=== PATIENT | female | born 1985 | race Caucasian/White ===

== ENCOUNTER 2024-01-20 11:30 | Emergency (ER) | payer BC, SELFPAY ==
[2024-01-20 11:30] VITALS: BMI 21.4
--- NOTE | 2024-01-20 11:33 | ED.SKININJ ---
HPI-Injury
<Ashlie Lewis PA-C - Last Filed: 01/20/24 17:21>
General
Chief Complaint: Bite
Time Seen by Provider: 01/20/24 12:17
<Dez Garcia MD - Last Filed: 01/21/24 12:38>
General
Source: patient
Exam Limitations: none
History of Present Illness-Injury
Initial Injury comments:
Patient stung by a bee like insect on the right neck. Followed by general itching and hives mostly to the upper extremities. No airway issues. No history of same. Took 50 of Benadryl at home. Moderate
ED Provider Triage
<Ashlie Lewis PA-C - Last Filed: 01/20/24 17:21>
-
Patient seen by provider in Triage?: Seen in Triage
Attestation: A medical screening examination has been initiated by a qualified medical provider. Based on the assessment performed at this time, it has been determined that an emergent medical condition may exist and the patient has been informed
that further medical evaluation and possible additional diagnostic testing may be needed.
HPI: 38yoF here with a rash. Bitten by an unknown insect about an hour ago. Developed generalized rash/itching shortly afterwards. Took 2 Benadryl without relief. No hx of allergic reactions. No dysphagia, SOB, n/v/d.
GENERAL: Alert , in no apparent distress
EYE: No visual abnormalities.
NECK: Trachea midline
ENT: No visible abnormalities.
LUNGS: No acute respiratory distress
NEUROLOGICAL: Alert and oriented
SKIN: Skin intact. No visible changes.
MUSCULOSKELETAL: Moving extremities normally
PSYCH: Normal and appropriate interaction.
This is a medical evaluation conducted in person to initiate diagnostic evaluation and provide initial therapeutics. Please see further documentation by the treating clinician.
No evidence of respiratory/GI involvement or anaphylaxis. Patient able to be placed in a hallway bed immediately after triage. IV Decadron and Benadryl ordered.
Past History
<Ashlie Lewis PA-C - Last Filed: 01/20/24 17:21>
Past History
ED Past Medical History: None; Negative IDDM
ED Past Surgical History:
Social History
Tobacco: Non-smoker
Alcohol: None
Drug: None
Personal:
Living: with family
Employment: Employed
Family History
Family History: Other (Noncontributory)
Review of Systems
<Dez Garcia MD - Last Filed: 01/21/24 12:38>
Review of Systems
All Other Systems: Not applicable
Constitutional: Denies fever
Respiratory: Reports no symptoms
Phy Exam
<Dez Garcia MD - Last Filed: 01/21/24 12:38>
Physical Exam
Physical Exam:
GENERAL: Alert and oriented in no apparent distress
EYE: Orbits normal.
NECK: Supple, n. No swelling.
ENT: Pharynx without erythema. Speech normal. No drooling or stridor
CARDIAC: Regular rate and rhythm without any obvious murmurs.
LUNGS: Clear breath sounds,normal
ABDOMEN: Soft, without focal tenderness or distention
NEUROLOGICAL: Alert and oriented , grossly non-focal
SKIN: Warm and dry, fading hives mostly to the arms. Bite jodi to the right neck with surrounding erythema. Mild erythematous hue to the back and abdomen
MUSCULOSKELETAL: No edema,no deformity.Good color
PSYCH: Normal and appropriate interaction.
Course
<Ashlie Lewis PA-C - Last Filed: 01/20/24 17:21>
Orders/Labs/Results
Orders:
Orders
01/20/24 11:40
0.9% Sodium Chloride 1000 ml [Nss] 1,000 ml IV BOLUS
Dexamethasone Sod Phosphate [Decadron] 10 mg IV NOW STA
Diphenhydramine [Benadryl] 25 mg IV NOW STA
01/20/24 12:23
Famotidine [Pepcid] 20 mg IV NOW STA
Vital Signs
Initial and Last Documented VS:
Initial Vital Signs
Temp Pulse Resp BP Pulse Ox
97.9 F 109 18 125/67 98
01/20/24 11:34 01/20/24 11:34 01/20/24 11:34 01/20/24 11:34 01/20/24 11:34
Last Documented Vital Signs
Temp Pulse Resp BP Pulse Ox
97.9 F 88 16 121/79 100
01/20/24 11:34 01/20/24 12:00 01/20/24 12:00 01/20/24 12:00 01/20/24 12:00
<Dez Garcia MD - Last Filed: 01/21/24 12:38>
Orders/Labs/Results
Orders:
Orders
01/20/24 11:40
0.9% Sodium Chloride 1000 ml [Nss] 1,000 ml IV BOLUS
Dexamethasone Sod Phosphate [Decadron] 10 mg IV NOW STA
Diphenhydramine [Benadryl] 25 mg IV NOW STA
01/20/24 12:23
Famotidine [Pepcid] 20 mg IV NOW STA
Vital Signs
Initial and Last Documented VS:
Initial Vital Signs
Temp Pulse Resp BP Pulse Ox
97.9 F 109 18 125/67 98
01/20/24 11:34 01/20/24 11:34 01/20/24 11:34 01/20/24 11:34 01/20/24 11:34
Last Documented Vital Signs
Temp Pulse Resp BP Pulse Ox
97.9 F 88 16 121/79 100
01/20/24 11:34 01/20/24 12:00 01/20/24 12:00 01/20/24 12:00 01/20/24 12:00
<Dez Garcia MD - Last Filed: 01/21/24 12:38>
MDM/Problems Addressed
Differential Diagnosis Includes:
Consistent with a wasp hornet or bee sting with secondary allergic reaction. Not anaphylactic. Clinically stable. Improving at this time. Will add H2 mira. No indication for epinephrine at this time
<Dez Garcia MD - Last Filed: 01/21/24 12:38>
*Critical Care Note
Total Time (30-74mins, 75-104mins- exclusive of procedures): Not Applicable
<Dez Garcia MD - Last Filed: 01/21/24 12:38>
Update Note
Update Note:
1320... Patient doing well. Hives resolved. Discharged to follow-up. Will give a small prescription for prednisone if needed. Also an EpiPen
ED Attending Note
<Ashlie Lewis PA-C - Last Filed: 01/20/24 17:21>
-
Portions of this chart may have been created with voice recognition software.� Occasional wrong word or��sound alike� substitutions may have occurred due to the inherent limitations of voice recognition software.
Discharge Plan
Departure
Patient Disposition: Home (Routine Discharge)
Date of Disposition: 01/20/24
Time of Disposition: 13:18
Patient with high blood pressure during this ER visit?: No
Discharge Problem:
Acute allergic reaction, Likely secondary to wasp/bee sting
Instructions: Insect Bites and Stings (DC), Allergic Reaction ED
Prescriptions:
New
prednisone 50 mg tablet
50 mg PO DAILY 3 Days Qty: 3 0RF
epinephrine [EpiPen 2-Azar] 0.3 mg/0.3 mL auto-injector
0.3 ml IM ONCE PRN (Reason: anaphylaxis) Qty: 2 0RF
No Action
clindamycin HCl 150 MG capsule
300 mg PO TID Qty: 42 0RF
Referrals:
Myra Amos, DO [Family Provider] - Follow up in 2-3 days
Activity Restrictions/Additional Instructions:
Take Benadryl or Claritin for the next few days
Also a Pepcid per day
Start the oral prednisone tomorrow with any residual symptoms
The EpiPen would be for life-threatening symptoms including feeling like you are in anaphylactic shock, acute respiratory issues associated with the sting, airway issues, hypotension symptoms etc.
Interventions
Interventions:
*Risk Screen - Suicide Last Done: 01/20/24 11:38
*General Assessment Last Done: 01/20/24 11:38
*Neglect/Abuse Screening Last Done: 01/20/24 11:38
ED- Fall Risk Assessment Last Done: 01/20/24 11:58
*ED COVID-19 Vaccine History Last Done: 01/20/24 11:38
*Nursing Disposition Last Done: 01/20/24 13:27
ED-Skin Assessment Last Done: 01/20/24 11:30
Discharge Date and Time
Discharge Date/Time: 01/20/24 13:33
Print Language: ALBANIAN
[2024-01-20 11:34] VITALS: BP 125/67
[2024-01-20] MEDS: NSS 1000 IV (11:48)
[2024-01-20] MEDS: BENADRYL 25 MG IV (11:50)
[2024-01-20] MEDS: DECADRON 10 MG IV (11:51)
[2024-01-20 11:58] VITALS: BP 118/77
[2024-01-20 12:00] VITALS: BP 121/79
[2024-01-20] MEDS: PEPCID 20 MG IV (12:33)
== END 2024-01-20 13:33 | disposition home or self-care (01) ==
LOC: EMR 11:30
PROVIDERS: EMERGENCY PHYSICIAN Emergency Medicine; FAMILY PHYSICIAN Internal Medicine
DX: T63.441A Toxic effect of venom of bees, accidental (unintentional), initial encounter (principal); L29.9 Pruritus, unspecified; L50.9 Urticaria, unspecified; W57.XXXA Bitten or stung by nonvenomous insect and other nonvenomous arthropods, initial encounter
CPT/HCPCS: 99284; 96374; 96375 ×2; 96361